=== PATIENT | male | born 1975 | race Caucasian/White ===

== ENCOUNTER → 2017-01-02 | Outpatient (CLI) | payer OTHER ==
[~2017-01-02] MED LIST: CITA20TA9 PO; TAMS0.4C38 PO
--- NOTE | 2017-01-02 11:36 | DIAGNOSTIC IMAGING REPORT ---
RIGHT KNEE 4 OR MORE CLINICAL HISTORY: Right knee pain. COMPARISON: None FINDINGS: Alignment of the right knee is anatomic. There is no fracture or suspicious lesion. There is spurring of the inferior pole of the patella at the origin of the patellar tendon. There is patellar and infrapatellar soft tissue swelling. There is no definite right knee joint effusion. Joint spaces are preserved. IMPRESSION: 1. No acute fracture. No joint effusion. 2. Inferior patellar spurring at the origin the patellar tendon with pre and infrapatellar soft tissue swelling. Electronically signed by: Mane Meléndez M.D. 01/02/2017 11:34 AM Dictated Date/Time: 01/02/2017 11:33 AM
== END | disposition home or self-care (01) ==
LOC: C.RDSM 11:07
PROVIDERS: ATTEND Internal Medicine
DX: M25.561 Pain in right knee (principal)

== ENCOUNTER → 2017-02-03 | Outpatient (CLI) | payer OTHER ==
--- NOTE | 2017-02-03 13:14 | DIAGNOSTIC IMAGING REPORT ---
RIGHT KNEE MRI HISTORY: Chronic right knee pain. COMPARISON STUDY: Right knee 12/25/2016. TECHNIQUE: Multiplanar multisequence MRI of the right knee was performed according to standard department protocol without the use of contrast. FINDINGS: Menisci: Abnormal signal within the posterior root of the lateral meniscus is consistent with an oblique tear. This extends to the undersurface. Small focus of abnormal signal within the posterior root of the medial meniscus which does not extend to the articular surface. Therefore, this is consistent with degeneration. Truncated appearance to the body of the medial meniscus is consistent with a free edge tear. Ligaments: The ACL, PCL, MCL, and LCL are intact. Extensor mechanism: The quadriceps tendon and patellar ligament are intact. Small bony fragments at the proximal attachment of the patella consistent with chronic change. Articular cartilage and bone: Mild cartilage fraying within the median ridge of the patella and medial femoral condyle. No fracture or dislocation within the knee. A 1 cm T2 hyperintense lesion within the proximal tibia favors a benign cartilaginous lesion. This is of doubtful clinical significance. Joint effusion: Small to moderate. Soft tissues: Anterior subcutaneous edema. There is also mild edema within Hoffa's fat-pad. IMPRESSION: 1. An oblique tear within the posterior root of the lateral meniscus. 2. Free edge tear at the body of the medial meniscus. 3. Small to moderate joint effusion. 4. Mild cartilage fraying within the patella and medial femoral condyle consistent with degenerative change. Electronically signed by: Kian Daniel M.D. 02/03/2017 1:13 PM Dictated Date/Time: 02/03/2017 1:00 PM
== END | disposition home or self-care (01) ==
LOC: C.MRI 11:30
PROVIDERS: ATTEND Internal Medicine
DX: M25.561 Pain in right knee (principal); S83.281A Other tear of lateral meniscus, current injury, right knee, initial encounter; X58.XXXA Exposure to other specified factors, initial encounter; M25.461 Effusion, right knee

== ENCOUNTER → 2017-02-24 | Outpatient (CLI) | payer OTHER | END | disposition home or self-care (01) | LOC: C.RDSM 09:41 | PROVIDERS: ATTEND Orthopaedic Surgery | DX: M25.561 Pain in right knee (principal) ==

== ENCOUNTER → 2017-03-23 | Day surgery (SDC) | payer OTHER ==
[2017-03-04 11:28] VITALS: Ht 190.5 cm; Wt 125.0 kg
[~2017-03-23] VITALS: Ht 190.5 cm; Wt 125.0 kg
[~2017-03-23] MED LIST changes: +ATROPINE SULFATE 0.1 MG/ML 5ML SYR IV PRN; +CEFAZOLIN 3000 MG/65 ML D5W IV SCH; -CITA20TA9 PO; +DEXAMETHASONE SOD INJ 4 MG/ML VIAL IV PRN; +EpHEDrine SULFATE INJ 50 MG/ML AMP IV PRN; +EpINEphrine HCL INJ 1 MG/ML 5ML SYRINGE ONE; +FENTANYL CITRATE INJ 50 MCG/1 ML 2 ML VIAL IV PRN; +FENTANYL CITRATE INJ 50 MCG/1 ML 2 ML VIAL ONE; +KETOROLAC TROMETHAMINE 30 MG/ML VIAL IV. PRN; +LABETALOL HCL IV 5 MG/ML 20ML IV PRN; +LACTATED RINGER'S 1000ML 1,000 ML IV SCH; +LIDO 2%/EPINEPHRINE 1:100000 20 ML VIAL INFIL ONE; +METOCLOPRAMIDE HCL INJ 5 MG/ML 2 ML VIAL IV PRN; +MIDAZOLAM HCL 1 MG/ML 2ML VIAL ONE; +MoRPHine SULFATE 10 MG/ML CARP/VIAL IV PRN; +ONDANSETRON INJ 2 MG/ML 2 ML VIAL IV PRN; +ONDANSETRON INJ 2 MG/ML 2 ML VIAL ONE; +OXYCODONE/ACETAMINOPHEN 5-325 TAB PO PRN; +PHENYLEPHRINE 100MCG/ML 5ML SYR IV PRN; +PROPOFOL IV EMULSION 10 MG/ML 20 ML VIAL IV ONE; +ROPIVACAINE 0.5% 5 MG/ML 30 ML VIAL ONE; +SODIUM CHLORIDE 0.9% 1000ML 1,000 ML IV SCH; -TAMS0.4C38 PO
--- NOTE | 2017-03-23 06:38 | History & Physical Bridge - [place] ---
H&P Re-Evaluation Bridge Note: I have examined the patient, reviewed the History & Physical and in the interval since the performance of the History & Physical I have noted the following changes of clinical significance: No changes noted
--- NOTE | 2017-03-23 08:33 | [facility] Post Operative Brief Note ---
Immediate Operative Summary Operative Date Mar 23, 2017. Pre-Operative Diagnosis Right Knee Medial Meniscus Tear, Synovitis Post-Operative Diagnosis Same Procedure(s) Performed Right Knee Arthroscopy, Partial Medial Meniscectomy, Medial Meniscus Repair, Major Synovectomy Surgeon Dr Ny Aircraft Hydraulic Equipment Mechanic Surgeon(s) Dony Saul PA-C Estimated Blood Loss 5ml Findings Medial meniscus root tear repaired with three Fast-fix all-inside sutures. Synovectomy of medial and lateral compartments with resection of infrapatellar plica. Debridement lateral meniscus tear Fluids (cc crystalloids) 1100 Specimens None Drains None Anesthesia General with local Complication(s) None Disposition Recovery Room / PACU
--- NOTE | 2017-03-23 08:37 | [facility] Operative Report ---
Operative Report Operative Date Mar 23, 2017. Pre-Operative Diagnosis Right Knee Medial Meniscus Tear, Synovitis Post-Operative Diagnosis Same Procedure(s) Performed Right Knee Arthroscopy, Partial Medial Meniscectomy, Medial Meniscus Repair, Major Synovectomy Surgeon Dr Ny Bread Baker Surgeon(s) Dony Saul PA-C Estimated Blood Loss 5ml Findings na Fluids (cc crystalloids) 1100 Specimens None Complication(s) None Disposition Recovery Room / PACU I attest to the content of the Intraoperative Record and any orders documented therein. Any exceptions are noted below.
--- NOTE | 2017-03-23 08:43 | [facility] Operative Report ---
Operative Report Operative Date Mar 23, 2017. Pre-Operative Diagnosis Right Knee Medial Meniscus Tear, Synovitis Post-Operative Diagnosis Same Procedure(s) Performed Right Knee Arthroscopy, Partial Medial Meniscectomy, Medial Meniscus Repair, Major Synovectomy Surgeon Dr Ny Authorization Rep Surgeon(s) Dony Saul PA-C Estimated Blood Loss 5ml Findings Degenerative tear of the posterior body of the medial meniscus with radial root tear. The root tear was repaired with 3 FasT-Fix sutures. There was fraying of the root of the lateral meniscus which was debrided. A major synovectomy was performed with resection of an patella plica throughout the medial and lateral compartments. Fluids (cc crystalloids) 1100 Specimens None Drains none Anesthesia Gen. with local Complication(s) None Disposition Recovery Room / PACU Implants 3 fast T fix all inside suture implants Indications Mason is a 41-year-old male who's had pain in his right knee for the last several months. He has failed conservative management with physical therapy. MRI demonstrates a complex tear of the posterior horn of the medial meniscus extending into the root. His physical exam shows Yesenia's and Steinmann's test with pain referable to the medial compartment. He also has a positive Giraldo test. Surgery is indicated to improve pain and promote function. Thorough discussion of the risks and benefits surgery is undertaken. All questions were answered. Informed consent was signed. Description of Procedure The patient was identified in the preoperative holding area where his surgical site was marked. He was brought back to main operating room was placed in the operative room table and general anesthesia was administered. All bony promises were padded. Perioperative antibiotics were administered. He was prepped and draped in the normal sterile fashion. Prior to incision a multidisciplinary timeout was called. All in the room were in agreement. We began by injecting his portals with 20 mL of 1% lidocaine with epinephrine. Incision was made for the anterolateral portal. Medial portal was created under direct visualization. We then performed a diagnostic arthroscopy. Diagnostic arthroscopy findings were as follows: #1 the undersurface the patella showed grade 3 chondral changes throughout. #2 the medial and lateral gutters were free of any loose bodies #3 the anterior cruciate ligament and PCL were intact. #4 the anterior compartment showed a large infrapatellar plica with anterior impinging synovitis in the medial and lateral compartments Medial compartment showed grade 2 chondral changes of the medial femoral condyle and grade 1 softening and medial tibial plateau. There was a radial tear through the root of the medial meniscus. There is degenerative fraying through the posterior horn of the medial meniscus. Lateral compartment showed grade 1 softening of the lateral tibial plateau and the lateral compartment. There was some fraying at the posterior root of the lateral meniscus without any nona detachment. Having completed our diagnostic arthroscopy we then resected the infrapatellar plica and synovitis in the medial and lateral compartments with combination of shaver and electrocautery for hemostasis. Gentle chondroplasty was performed of the patella as well as medial femoral condyle chondromalacia. We then used biters and kaitlin to trim back the degenerative portion of the posterior horn of the medial meniscus to a stable base. I then grasped the posterior horn of the medial medial meniscus and there was good excursion. The shaver as well as a meniscal rasp were then used to stimulate a healing response at the area of the tear. 3 fast T fix sutures were opened up. 2 of these sutures were used to place [id number] sutures from the root to the posterior horn. A third suture was then placed in horizontal mattress fashion through the posterior horn and medial meniscus to stabilize repair. Next gentle debridement was carried out of the fraying of the lateral meniscus. All arthroscopic entrance then removed. The knee was injected with 30 mL of half percent ropivacaine without epinephrine with 10 mL and the portals each and 10 mL into the joint. Inverted 3-0 Monocryl's were used for the skin followed by Steri-Strips 2 x 2's and Tegaderm dressings. He was placed in a hinge knee brace locked in extension. He is welcome anesthesia and transferred recovery room in stable condition. Postoperative course: The patient be discharged home from recovery room. He'll be toe-touch weightbearing for the next 6 weeks with range of motion limited from 0-90. He will follow the complex meniscus repair protocol. DVT prophylaxis will be with baby aspirin. I attest to the content of the Intraoperative Record and any orders documented therein. Any exceptions are noted below.
--- NOTE | 2017-03-23 08:50 | Discharge Instructions ---
Discharge Instructions Date of Service Mar 23, 2017. Admission Reason for Admission: Right Knee Medial Meniscus Tear, Synovitis Discharge Discharge Diagnosis / Problem: Right knee medial meniscus tear; synovitis Discharge Goals Goal(s): Decrease discomfort, Improve function, Increase independence Activity Recommendations Activity Limitations: as noted below Lifting Limitations: none Exercise/Sports Limitations: until after follow-up appointment May Resume Sexual Activity: after follow-up appointment Shower/Bathe: may shower/bathe in 3 days, keep incision dry Driving or Machine Use: No driving until cleared by orthopedist Weightbearing Status: Right toe touch (weight bearing for 6 wks) . Instructions / Follow-Up Instructions / Follow-Up Post-operative Instructions Dear Patient and Family/Friends, Before you are discharged from the hospital, it is important to know what to expect when you get home after surgery. To that end, we have created this sheet of discharge instructions which covers many commonly asked questions. Make sure you go through this sheet in its entirety with your nurse before you are discharged. Please note that we will go over the specifics of your surgery and recovery when you return for your first post-operative visit. Sincerely, Dr. Ny Pain Expect to be in a fair amount of pain after surgery. Remember, our goal is not to eliminate your pain, but to make it tolerable. It is a good idea to stay ahead of your pain by taking the medications you were prescribed once you get home. Typically, the pain starts improving 3-7 days after surgery. You should start weaning off the narcotic pain medication (oxycodone, hydrocodone, hydromorphone, morphine) as soon as your pain improves. Please call our office if your pain is not adequately controlled. Ice Ice your operative site at least 5 times a day for 15-30 minutes at a time. Make sure you have a thin cloth between the ice or cooling unit and your skin to prevent cramer bite. This is especially important if you received a nerve block. Continue icing your operative site for the first 5-7 days after surgery , then as needed. Diet/Nausea/Vomiting Start by drinking clear liquids and eating crackers. If you can tolerate this, then you may resume your normal diet. If you feel nauseated or vomit, take Zofran/ondansetron (if prescribed). Please call our office if you have intractable nausea or vomiting, or, if after hours, you may go to the Emergency Room for help. Constipation Constipation is a common side effect of narcotic pain medication. If you have not had a bowel movement within 2 days after surgery, we recommend purchasing an over the counter laxative such as Milk of Magnesia, Dulcolax, or Miralax from a local pharmacy, and taking it as instructed. Call our clinic if any questions. Slings and Braces If you were placed in a sling or brace, it must be worn at all times, including sleep. You may remove your sling or brace for physical therapy, home exercises , and showering. The length of time you will be in your brace and range of motion restrictions depends on what surgery you had; these details will be reviewed at your first post-operative appointment. Nerve block The anesthesia team sometimes places a nerve block to help with post-operative pain control. This results in significant numbness and inability to move the extremity. The nerve block usually wears off in 8-12 hours, but sometimes can last up to 24 hours. Please call our office if you are still unable to move your extremity after 24 hours, unless you received a pain pump to take home. Nerve blocks typically wear off quickly, so start taking pain medication as soon as you start feeling soreness near your surgical site. Weight bearing and Range of Motion. Do not bear any weight through your operative extremity immediately after surgery. If you had upper extremity surgery, do not lift anything with that arm. If you are in a knee brace, keep it locked in place until your follow-up. We will discuss your weight bearing, range of motion, and lifting restrictions in detail at your first post-operative appointment. Continuous Passive Motion (CPM) Machine If you were prescribed a CPM machine, it will start after your first post- operative appointment, at which time we will give you instructions on the range of motion settings and duration of treatment Physical therapy You will be given a prescription for physical therapy or occupational therapy at your first post-operative appointment. Typically, patients start therapy within 1 week of surgery Wound care and showering We will inspect your wound at your first post-operative visit, and may do a dressing change at that time. Most patients will be in a water-proof dressing that is removed 14 days after surgery. It is normal to see some dried blood on the dressing. Do not remove your dressing, paper strips or sutures yourself unless you are given permission. Showering is allowed the day after surgery. Do not scrub or remove any dressings. The wound should not be submerged underwater (i.e. in a bathtub or pool) until 4 weeks after surgery BRIGIDA stockings If you were given white stockings, these are to be worn at all times except to shower (on both legs) for the first 2 weeks after surgery. Driving You may not drive while taking narcotic pain medication or while in a cast, splint, sling or brace. You, the patient, need to make the final determination about when you are safe to drive, however, the earliest you may consider driving after surgery is below Hand/Wrist/Elbow Surgery: 3 days Shoulder Surgery: 2 weeks Hip, Knee, and Ankle Surgery: 4 weeks Fracture repair: 6 weeks Return to Work Your return to work depends on what surgery was done and what type of work you do. Please bring any paperwork your employer needs completed to your first post -operative visit. Also, bring a description of your job duties, as this helps us to understand what risks you may face at work. Travel Avoid long distance travel (greater than 1 hour) in airplanes and cars for the first 6 weeks after surgery. If you must travel, you need to have a Doppler ultrasound done before you travel to rule out a blood clot in your legs. Follow-up You should have a follow-up appointment already scheduled 1-2 days after surgery. If not, please contact our office to make this appointment before you leave the hospital. When to call the office It is normal to have swelling and bruising in the limb that was operated on. This will improve with time. It is also normal to have fevers for the first 2 days after surgery. Reasons you should call your doctor include: Uncontrolled pain; Nausea, vomiting, or constipation that does not improve with medication; Fevers over 101.5, chills, sweats; Drainage or bleeding from the wound; Foul odor; Spreading areas of redness; Any other concerns Current Hospital Diet Patient's current hospital diet: Discharge Diet Recommended Diet: Regular Diet Fluid Restriction: None Procedures Procedures Performed: Right Knee Arthroscopy, Partial Medial Meniscectomy, Medial Meniscus Repair, Major Synovectomy Pending Studies Studies pending at discharge: no Medical Emergencies . Who to Call and When: Medical Emergencies: If at any time you feel your situation is an emergency, please call 911 immediately. . Non-Emergent Contact Non-Emergency issues call your: Primary Care Provider Call Non-Emergent contact if: temperature is above 101.5, your pain is not controlled, your pain is worsening, wound has increased drainage, you have any medication questions . "Provider Documentation" section prepared by Navneet Saul. . VTE Core Measure Inpt VTE Proph given/why not?: Other Anticoagulation (Aspirin 81 mg), T.E.DTiffany Rabago MD Drug Monitoring Program Search Results: patient reviewed within database, no issues identified, see additional documentation
--- NOTE | 2017-03-23 09:17 | Anesthesia Progress Nt - [facility] ---
Anesthesia Post Op Note Date & Time Mar 23, 2017 at 09:17 Vital Signs Pain Intensity: 5.0 Vital Signs Past 12 Hours Date Time Temp Pulse Resp B/P (MAP) Pulse Ox O2 Delivery O2 Flow Rate FiO2 03/23/17 09:02 49 14 03/23/17 09:02 50 14 97 03/23/17 09:00 109/74 03/23/17 08:57 59 23 96 03/23/17 08:57 58 23 03/23/17 08:56 115/74 03/23/17 08:52 55 16 98 03/23/17 08:52 56 16 03/23/17 08:50 116/77 03/23/17 08:47 64 17 03/23/17 08:47 64 17 96 03/23/17 08:46 140/129 03/23/17 08:42 66 133/63 95 03/23/17 08:42 66 03/23/17 08:41 125/ 03/23/17 08:37 36.6 68 20 133/63 96 Diffusion Mask 6 03/23/17 06:33 36.4 60 18 131/80 (97) 96 Room Air Notes Mental Status: alert / awake / arousable, participated in evaluation Pt Amnestic to Procedure: Yes Nausea / Vomiting: adequately controlled Pain: adequately controlled Airway Patency, RR, SpO2: stable & adequate BP & HR: stable & adequate Hydration State: stable & adequate Anesthetic Complications: no major complications apparent
[2017-03-23 09:35] VITALS: TEMP 36.6
[2017-03-23 10:08] VITALS: BP 121/73; PULSE 60; O2SAT 97
== END | disposition home or self-care (01) ==
LOC: X.SURG 06:18
PROVIDERS: ATTEND Orthopaedic Surgery
DX: M23.221 Derangement of posterior horn of medial meniscus due to old tear or injury, right knee (principal); G47.33 Obstructive sleep apnea (adult) (pediatric); E66.9 Obesity, unspecified; Z90.49 Acquired absence of other specified parts of digestive tract; Z83.3 Family history of diabetes mellitus

== ENCOUNTER → 2017-09-04 | Outpatient (CLI) | payer OTHER ==
--- NOTE | 2017-09-04 11:56 | DIAGNOSTIC IMAGING REPORT ---
R VENOUS DOPP LOWER EXT UNILAT CLINICAL HISTORY: R60.0 pain. Edema. TECHNIQUE: Venous Doppler COMPARISON STUDY: None FINDINGS: Normal study IMPRESSION: Normal study The above report was generated using voice recognition software. It may contain grammatical, syntax or spelling errors. Electronically signed by: Art Muir M.D. 09/04/2017 11:54 AM Dictated Date/Time: 09/04/2017 11:54 AM
== END | disposition home or self-care (01) ==
LOC: C.ULTRBC 11:34
PROVIDERS: ATTEND Family Medicine
DX: R60.0 Localized edema (principal)